=== PATIENT | male | born 1990 | race Caucasian/White ===

== ENCOUNTER 2016-02-13 07:54 | Emergency (ER) | payer OTHER ==
[2016-02-13 08:11] VITALS: BP 160/89
--- NOTE | 2016-02-13 08:21 | UC ---
General HPI - HPI Summary HPI Summary: complaint of sebaceous cyst on left side of neck for over 1 year scheduled to have removed on the 02/19/16 feels slightly larger and warm that started approx 4 days ago taking ibuprofen with some relief denies fever , difficulty swallowing - History of Current Complaint Chief Complaint: UCSkin Stated Complaint: LUMP ON NECK Time Seen by Provider: 02/13/16 08:10 Hx Obtained From: Patient - Allergy/Home Medications Allergies/Adverse Reactions: Allergies Allergy/AdvReac Type Severity Reaction Status Date / Time No Known Allergies Allergy Verified 01/17/16 15:00 PMH/Surg Hx/FS Hx/Imm Hx Previously Healthy: Yes Cardiovascular History Of: Denies: Cardiac Disorders, Hypertension Respiratory History Of: Reports: Asthma - as a child - Surgical History Surgical History: None - Family History Known Family History: Negative: Cardiac Disease, Hypertension, Diabetes Family History: NON CONTRIBUTORY - Social History Occupation: Employed Full-time Alcohol Use: Weekly Alcohol Amount: weekends Substance Use Type: None Smoking Status (MU): Heavy Every Day Tobacco Smoker Amount Used/How Often: 1/2 ppd Length of Time of Smoking/Using Tobacco: since age 20 Have You Smoked in the Last Year: Yes Cessation Counseling: Patient Advised to Stop - Immunization History Most Recent Tetanus Shot: 12/2015 Review of Systems Constitutional: Negative Skin: Other - cyst in left side of neck Eyes: Negative ENT: Negative Respiratory: Negative Cardiovascular: Negative Gastrointestinal: Negative Genitourinary: Negative Motor: Negative Neurovascular: Negative Musculoskeletal: Negative Neurological: Negative Psychological: Negative All Other Systems Reviewed And Are Negative: Yes Physical Exam Triage Information Reviewed: Yes Appearance: No Pain Distress, Well-Nourished Vital Signs: Initial Vital Signs Temp 99.1 F 02/13/16 08:04 Pulse 78 02/13/16 08:04 Resp 18 02/13/16 08:04 BP 160/89 02/13/16 08:04 Pulse Ox 100 02/13/16 08:04 Vital Signs Reviewed: Yes Eyes: Positive: Conjunctiva Clear ENT: Positive: Pharynx normal, TMs normal. Negative: Nasal congestion Neck: Positive: Enlarged Nodes @ - left side of neck 1.5x1.5cm cyst erythematous and warm to touch Respiratory: Positive: Lungs clear, Normal breath sounds, No respiratory distress Cardiovascular: Positive: RRR, No Murmur, Pulses Normal Abdomen Description: Positive: Nontender, Soft Bowel Sounds: Positive: Present Musculoskeletal: Positive: No Edema Neurological: Positive: Alert Psychological Exam: Normal Skin Exam: Normal Course/Dx - Course Course Of Treatment: exam completed. cyst is in neck and needs to be removed by surgeon. no difficulties swallowing and afebrile. pt will call [facility] emergency department to make an earlier appt - Differential Dx - Multi-Symptom Provider Diagnoses: sebaceous cyst- left side of neck. elevated blood pressure Discharge - Discharge Plan Condition: Stable Disposition: HOME Patient Education Materials: Cyst (ED) Referrals: Bi Alonso NP [Primary Care Provider] - Additional Instructions: [facility] to see if your appointment can be made sooner for cyst removal take ibuprofen for pain and to reduce inflammation please followup with your primary care provider about your elevated blood pressure. Please review your discharge instructions. If your symptoms do not improve please call your primary care provider or return to urgent care.
== END 2016-02-13 08:35 | disposition home or self-care (01) ==
LOC: UCEAST 07:54
DX: L72.3 Sebaceous cyst (principal); F17.210 Nicotine dependence, cigarettes, uncomplicated; R03.0 Elevated blood-pressure reading, without diagnosis of hypertension
CPT/HCPCS: 99211; G0463

== ENCOUNTER 2016-08-14 17:34 | Emergency (ER) | payer OTHER ==
[2016-08-14 17:44] VITALS: BP 162/100
--- NOTE | 2016-08-14 19:42 | UC ---
Complaint Male HPI - HPI Summary HPI Summary: 1 WEEK OF DYSURIA, FREQUENCY AND SENSATION OF INCOMPLETE VOIDING. URINE IS DARK. WORKS OUTSIDE A [employer] AND HAS NOT BEEN DRINKING ENOUGH WATER. IS IN A MONOGAMOUS RELATIONSHIP WITH HIS GIRLFRIEND FOR OVER A YEAR AND A HALF. TIP OF PENIS AND URETHRAL MEATUS FEEL IRRITATED. DENIES ANY DRIP. - History of Current Complaint Chief Complaint: UCGU Stated Complaint: UTI COMPLAINT Time Seen by Provider: 08/14/16 19:00 Hx Obtained From: Patient Onset/Duration: Gradual Onset, Lasting Days, Still Present Timing: Constant Severity Initially: Moderate Severity Currently: Moderate Location: Penis Character: Burning Aggravating Factor(s): Voiding Alleviating Factor(s): Nothing Associated Signs And Symptoms: Positive: Dysuria. Negative: Back Pain, Fever, Penile Discharge - Allergies/Home Medications Allergies/Adverse Reactions: Allergies Allergy/AdvReac Type Severity Reaction Status Date / Time No Known Allergies Allergy Verified 08/14/16 17:44 PMH/Surg Hx/FS Hx/Imm Hx Previously Healthy: Yes - Surgical History Surgical History: None - Family History Known Family History: Negative: Cardiac Disease, Hypertension, Diabetes Family History: NON CONTRIBUTORY - Social History Alcohol Use: Weekly Alcohol Amount: weekends Substance Use Type: None Smoking Status (MU): Heavy Every Day Tobacco Smoker Amount Used/How Often: 1/2 ppd Length of Time of Smoking/Using Tobacco: since age 20 Have You Smoked in the Last Year: Yes - Immunization History Most Recent Tetanus Shot: 12/2015 Review of Systems Constitutional: Negative Respiratory: Negative Cardiovascular: Negative Gastrointestinal: Negative Genitourinary: Dysuria, Frequency, Urgency All Other Systems Reviewed And Are Negative: Yes Physical Exam Triage Information Reviewed: Yes Appearance: Well-Appearing, No Pain Distress, Well-Nourished Vital Signs: Initial Vital Signs Temp 98.1 F 08/14/16 17:40 Pulse 98 08/14/16 17:40 Resp 16 08/14/16 17:40 BP 162/100 08/14/16 17:40 Pulse Ox 100 08/14/16 17:40 Vital Signs Reviewed: Yes Eyes: Positive: Conjunctiva Clear ENT: Positive: Hearing grossly normal Neck: Positive: Supple Respiratory: Positive: No respiratory distress, No accessory muscle use Cardiovascular: Positive: Pulses Normal Abdomen Description: Positive: Soft Musculoskeletal: Positive: No Edema Neurological: Positive: Alert Psychological: Positive: Age Appropriate Behavior Skin: Negative: rashes UC Physical Exam Vital Signs On Initial Exam: Initial Vitals Temp Pulse Resp BP Pulse Ox 98.1 F 98 16 162/100 100 08/14/16 17:40 08/14/16 17:40 08/14/16 17:40 08/14/16 17:40 08/14/16 17:40 - Genitalia Exam Male Genitalia: Circumcised, Other - NO PENILE D/C. NO LESIONS. NO SCROTAL TENDERNESS. NO INGUINAL LAD. Complaint Male Course/Dx - Differential Dx/Diagnosis Provider Diagnoses: DYSURIA Discharge - Discharge Plan Condition: Stable Disposition: HOME Patient Education Materials: Dysuria (ED) Referrals: Shala Dominguez, SIGNAL CIRCUIT DESIGNER [Primary Care Provider] - 1 Week Additional Instructions: URINE SENT FOR CULTURE AND TESTING FOR GONORRHEA AND CHLAMYDIA. BE SURE TO STAY VERY WELL HYDRATED. FOLLOW-UP WITH SHALA DOMINGUEZ FOR FURTHER EVALUATION IF YOUR SYMPTOMS ARE PERSISTENT. YOU MAY BENEFIT FROM IMAGING.
[2016-08-14] MEDS ORDERED: cefTRIAXone VIAL(*) 250 MG VIAL IM ONE (19:54)
[2016-08-14] MEDS ORDERED: Lidocaine 1% MPF* 2 ML VIAL INJ ONE (19:54)
[2016-08-14] MEDS ORDERED: Azithromycin TAB* 250 MG PO ONE (19:55)
== END 2016-08-14 20:29 | disposition home or self-care (01) ==
LOC: UCEAST 17:34
DX: R30.0 Dysuria (principal); F17.210 Nicotine dependence, cigarettes, uncomplicated
CPT/HCPCS: 81003; 87086; 87491; 87591; 99211; A9270-GY; G0463; J0696

== ENCOUNTER 2016-08-16 09:26 | Emergency (ER) | payer OTHER ==
--- NOTE | 2016-08-16 10:30 | UC ---
Complaint Male HPI - HPI Summary HPI Summary: PT SEEN HERE 2 DAYS AGO AND TREATED FOR GC/CHLAMYDIA. RETURNS TODAY C/O RIGHT GROIN AND SCROTAL TENDERNESS. DYSURIA IS IMPROVED. DENIES ANAL INSERTIVE INTERCOURSE OR TRAUMA. IS IN A MONOGAMOUS RELATIONSHIP WITH GF FOR OVER A YEAR AND A HALF. PT IS VERY ANXIOUS. - History of Current Complaint Chief Complaint: UCGU Stated Complaint: TESTICULAR PAIN AND DIARRHEA Time Seen by Provider: 08/16/16 09:53 Hx Obtained From: Patient Onset/Duration: Gradual Onset, Lasting Days, Still Present Timing: Constant Severity Initially: Moderate Severity Currently: Moderate Pain Intensity: 4 Pain Scale Used: 0-10 Numeric Location: Scrotum - RIGHT Character: Sharp Aggravating Factor(s): Nothing Alleviating Factor(s): Nothing Associated Signs And Symptoms: Positive: Back Pain. Negative: Diaphoresis, Fever, Hematuria, Dysuria, Constipation, Blood in Stool, Rectal Pain, Appetite, Nausea, Vomiting(# Of Episodes =), Penile Swelling, Penile Discharge - Allergies/Home Medications Allergies/Adverse Reactions: Allergies Allergy/AdvReac Type Severity Reaction Status Date / Time No Known Allergies Allergy Verified 08/14/16 17:44 PMH/Surg Hx/FS Hx/Imm Hx Respiratory History: Asthma - Surgical History Surgical History: None Surgery Procedure, Year, and Place: cyst removed - Family History Known Family History: Negative: Cardiac Disease, Hypertension, Diabetes Family History: NON CONTRIBUTORY - Social History Alcohol Use: Weekly Alcohol Amount: weekends Substance Use Type: None Smoking Status (MU): Heavy Every Day Tobacco Smoker Amount Used/How Often: 1/2 ppd Length of Time of Smoking/Using Tobacco: since age 20 Have You Smoked in the Last Year: Yes - Immunization History Most Recent Tetanus Shot: 12/2015 Review of Systems Constitutional: Negative Skin: Negative Respiratory: Negative Cardiovascular: Negative Gastrointestinal: Negative Genitourinary: Other - RIGHT TESTICULAR PAIN All Other Systems Reviewed And Are Negative: Yes Physical Exam Triage Information Reviewed: Yes Appearance: Well-Appearing, No Pain Distress, Well-Nourished Vital Signs: Initial Vital Signs Temp 97.9 F 08/16/16 09:27 Pulse 78 08/16/16 09:27 Resp 16 08/16/16 09:27 BP 136/85 08/16/16 09:27 Pulse Ox 100 08/16/16 09:27 Vital Signs Reviewed: Yes Eyes: Positive: Conjunctiva Clear ENT: Positive: Hearing grossly normal Neck: Positive: Supple Respiratory: Positive: No respiratory distress, No accessory muscle use Cardiovascular: Positive: Pulses Normal Abdomen Description: Positive: Nontender, Soft. Negative: CVA Tenderness (R), CVA Tenderness (L), Distended, Guarding Musculoskeletal: Positive: No Edema Neurological: Positive: Alert Psychological: Positive: Age Appropriate Behavior Skin: Negative: rashes UC Physical Exam Vital Signs On Initial Exam: Initial Vitals Temp Pulse Resp BP Pulse Ox 97.9 F 78 16 136/85 100 08/16/16 09:27 08/16/16 09:27 08/16/16 09:27 08/16/16 09:08/16/16 09:27 - Genitalia Exam Male Genitalia Cont.: Right: Testicles Tender - POSTERIORLY, Bilateral: Testicles Descended - NO RASH, NO MASS, NO PENILE D/C, NO HERNIA Diagnostics - Laboratory Diagnostic Studies Completed/Ordered: URINE DIP UNREMARKABLE - Radiology TESTICULAR US Xray Interpretation: No Acute Changes Radiology Interpretation Completed By: Radiologist Complaint Male Course/Dx - Differential Dx/Diagnosis Differential Diagnosis/HQI/PQRI: Epididymitis, Testicular Torsion Provider Diagnoses: RIGHT TESTICULAR PAIN Discharge - Discharge Plan Condition: Stable Disposition: HOME Patient Education Materials: Epididymitis (ED), Testicle Pain (ED) Referrals: Bi Alonso NP [Primary Care Provider] - If Needed Ronnie Cruz MD [Medical Doctor] - 5 Days Additional Instructions: ULTRASOUND TODAY UNREMARKABLE. URINE TEST UNREMARKABLE. SINCE YOUR SYMPTOMS SEEM TO BE IMPROVED ALREADY FROM THIS MORNING WOULD RECOMMEND CAREFUL OBSERVATION. USE SCROTAL SUPPORT AND TAKE OTC ANTI-INFLAMMATORIES FOR DISCOMFORT. CALL UROLOGY TODAY FOR AN APPT NEXT WEEK. GO TO THE ER WITHOUT FAIL IF YOUR PAIN WORSENS.
[2016-08-16 11:19] VITALS: BP 147/88
--- NOTE | 2016-08-16 11:27 | RAD ---
HISTORY: Right testicular pain COMPARISONS: None TECHNIQUE: Multiple transverse and longitudinal ultrasound images were obtained of the scrotum, using grayscale, color Doppler, and spectral Doppler imaging. FINDINGS: RIGHT: RIGHT TESTICLE: The right testicle measures 4.3 x 2.2 x 3.3 cm. The right testicle is homogeneous in echotexture, without testicular parenchymal mass. Normal arterial and venous waveforms are identified within the right testicle on spectral Doppler imaging. RIGHT EPIDIDYMIS: The right epididymis measures 0.9 cm at the head. RIGHT SCROTUM: There is no hydrocele or varicocele. LEFT: LEFT TESTICLE: The left testicle measures 4 x 1.9 x 2.9 cm. The left testicle is homogeneous in echotexture, without testicular parenchymal mass. Normal arterial and venous waveforms are identified within the left testicle on spectral Doppler imaging. LEFT EPIDIDYMIS: The left epididymis measures 0.8 cm at the head. LEFT SCROTUM: There is no hydrocele or varicocele. OTHER: None IMPRESSION: NO TESTICULAR PARENCHYMAL MASS. NO SONOGRAPHIC FEATURES OF TORSION. PLEASE NOTE THAT PARTIAL OR INTERMITTENT TORSION MAY BE SONOGRAPHICALLY NORMAL.
== END 2016-08-16 12:23 | disposition home or self-care (01) ==
LOC: UCEAST 09:26
DX: N50.811 Right testicular pain (principal); F17.210 Nicotine dependence, cigarettes, uncomplicated
CPT/HCPCS: 76870; 81003; 99211; G0463

== ENCOUNTER 2016-11-22 09:36 | Emergency (ER) | payer OTHER ==
[2016-11-22 09:55] VITALS: BP 147/89
--- NOTE | 2016-11-22 10:59 | UC ---
Skin Complaint HPI - HPI Summary HPI Summary: Patient presents with an unremarkable past medical history. He states last summer he developed jock itch and treated it with lotrisone spray with goo relief. She states ow he has some itching around his anus. He denies any dusuria, hematuria or abdominal pain. - History of Current Complaint Chief Complaint: UCGeneralIllness Time Seen by Provider: 11/22/16 10:02 Stated Complaint: RASH Hx Obtained From: Patient Onset/Duration: Gradual Onset, Lasting Days Skin Exposure Onset/Duration: Weeks Ago Current Severity: None Location: Other - groin, and testicles Aggravating Factor(s): Humidity, Other - heat and sweating Alleviating Factor(s): OTC Meds Associated Signs & Symptoms: Positive: Rash Similar Episode/Dx as: jock itch - Allergy/Home Medications Allergies/Adverse Reactions: Allergies Allergy/AdvReac Type Severity Reaction Status Date / Time No Known Allergies Allergy Verified 11/22/16 09:49 Review of Systems Constitutional: Negative Skin: Rash Eyes: Negative ENT: Negative Respiratory: Negative Cardiovascular: Negative Gastrointestinal: Negative Genitourinary: Negative Motor: Negative Neurovascular: Negative Musculoskeletal: Negative Neurological: Negative Psychological: Negative All Other Systems Reviewed And Are Negative: Yes PMH/Surg Hx/FS Hx/Imm Hx Previously Healthy: Yes - Surgical History Surgical History: Yes Surgery Procedure, Year, and Place: cyst removed - Family History Known Family History: Negative: Cardiac Disease, Hypertension, Diabetes Family History: NON CONTRIBUTORY - Social History Occupation: Employed Full-time Lives: Alone Alcohol Use: Weekly Alcohol Amount: weekends Substance Use Type: None Smoking Status (MU): Heavy Every Day Tobacco Smoker Amount Used/How Often: 1/2 ppd Length of Time of Smoking/Using Tobacco: since age 20 Have You Smoked in the Last Year: Yes - Immunization History Most Recent Tetanus Shot: 12/2015 Physical Exam Triage Information Reviewed: Yes Vital Signs: Initial Vital Signs Temp 99.1 F 11/22/16 09:50 Pulse 88 11/22/16 09:50 Resp 18 11/22/16 09:50 BP 147/89 11/22/16 09:50 Pulse Ox 100 11/22/16 09:50 Vital Signs Reviewed: Yes Eye Exam: Normal ENT Exam: Normal Dental Exam: Normal Neck exam: Normal Neck: Positive: 1 Respiratory Exam: Normal Cardiovascular Exam: Normal Abdominal Exam: Normal Musculoskeletal Exam: Normal Neurological Exam: Normal Psychological Exam: Normal Skin Exam: Normal Course/Dx - Course Course Of Treatment: Patient presents with healed jock itch, except surrounding the anus. He was RX diflucan 150 mg once time dose and discharge home. - Differential Diagnoses - Skin Complaint Differential Diagnoses: Other - jock itch - Diagnoses Provider Diagnoses: jock itch Discharge - Discharge Plan Condition: Stable Disposition: HOME Prescriptions: Fluconazole 150 MG (NF) [Diflucan 150 mg (NF)] 150 mg PO ONCE #1 tab Patient Education Materials: Skin Yeast Infection (ED) Referrals: Bi Alonso NP [Primary Care Provider] -
== END 2016-11-22 10:45 | disposition home or self-care (01) ==
LOC: UCEAST 09:36
DX: B35.6 Tinea cruris (principal); F17.210 Nicotine dependence, cigarettes, uncomplicated
CPT/HCPCS: 99212; G0463

== ENCOUNTER 2016-11-23 17:56 | Emergency (ER) | payer OTHER ==
[2016-11-23 18:11] VITALS: BP 156/83
[2016-11-23] MEDS ORDERED: Amoxicillin/Clavulanate TAB* 875 MG PO ONE (19:03)
--- NOTE | 2016-11-23 20:39 | UC ---
Throat Pain/Nasal Primitivo HPI - HPI Summary HPI Summary: ONE DAY OF SORE THROAT, LEFT EAR DISCOMFORT. EXPOSED TO GIRLFRIEND WITH TONSILLITIS. NO FEVER. - History of Current Complaint Chief Complaint: UCRespiratory Stated Complaint: SORE THROAT Time Seen by Provider: 11/23/16 18:34 Hx Obtained From: Patient Onset/Duration: Gradual Onset, Lasting Days Severity: Mild Pain Intensity: 2 Pain Scale Used: 0-10 Numeric Cough: None Associated Signs & Symptoms: Positive: Hoarseness, Other - LEFT EAR PAIN - Epiglottits Risk Factors Epiglottis Risk Factors: Negative - Allergies/Home Medications Allergies/Adverse Reactions: Allergies Allergy/AdvReac Type Severity Reaction Status Date / Time No Known Allergies Allergy Verified 11/23/16 18:12 PMH/Surg Hx/FS Hx/Imm Hx Previously Healthy: Yes - Surgical History Surgical History: Yes Surgery Procedure, Year, and Place: cyst removed - Family History Known Family History: Negative: Cardiac Disease, Hypertension, Diabetes Family History: NON CONTRIBUTORY - Social History Occupation: Student Lives: With Family Alcohol Use: Occasionally Alcohol Amount: weekends Substance Use Type: None Smoking Status (MU): Heavy Every Day Tobacco Smoker Amount Used/How Often: 1/2 ppd Length of Time of Smoking/Using Tobacco: since age 20 Have You Smoked in the Last Year: Yes Cessation Counseling: Patient Advised to Stop - Immunization History Most Recent Tetanus Shot: 12/2015 Review of Systems Constitutional: Negative Skin: Negative Eyes: Negative ENT: Sore Throat, Ear Ache Respiratory: Negative Cardiovascular: Negative Gastrointestinal: Negative Genitourinary: Negative Motor: Negative Neurovascular: Negative Musculoskeletal: Negative Neurological: Negative Psychological: Negative Is Patient Immunocompromised?: No All Other Systems Reviewed And Are Negative: Yes Physical Exam Triage Information Reviewed: Yes Appearance: Well-Appearing, No Pain Distress, Well-Nourished Vital Signs: Initial Vital Signs Temp 98.4 F 11/23/16 18:09 Pulse 90 11/23/16 18:09 Resp 12 11/23/16 18:09 BP 156/83 11/23/16 18:09 Pulse Ox 99 11/23/16 18:09 Vital Signs Reviewed: Yes Eye Exam: Normal ENT: Positive: Pharyngeal erythema, TMs normal, TM bulging, Other: - LEFT EAC EDEMA ERYTHEMA Dental: Positive: Cervical Lymphadenopathy - LEFT ANTERIOR CERVICAL CHAIN Neck: Positive: Supple, Nontender, Enlarged Nodes @ - LEFT ANTERIRO CERVICAL CHAIN Respiratory Exam: Normal Respiratory: Positive: Chest non-tender, Lungs clear, Normal breath sounds, No respiratory distress Cardiovascular Exam: Normal Cardiovascular: Positive: RRR, No Murmur, Pulses Normal Abdominal Exam: Normal Musculoskeletal Exam: Normal Musculoskeletal: Positive: Strength Intact Neurological Exam: Normal Psychological Exam: Normal Skin Exam: Normal Throat Pain/Nasal Course/Dx - Differential Dx/Diagnosis Differential Diagnosis/HQI/PQRI: Otitis Media, Pharyngitis, Tonsillitis, URI Provider Diagnoses: PHARYNGITIS; LEFT OTITIS EXTERNA Discharge - Discharge Plan Condition: Stable Disposition: HOME Prescriptions: Amoxicillin/Clavulanate TAB* [Augmentin TAB 875*] 875 mg PO BID #20 tab Neomyc/Polym/HC 1% OTIC SUSP* [Cortisporin Otic Susp 1%*] 4 drop LEFT EAR QID # 1 btl Patient Education Materials: Pharyngitis (ED), Otitis Externa (ED) Referrals: Bi Alonso LAUNDERER HAND [Primary Care Provider] -
== END 2016-11-23 19:21 | disposition home or self-care (01) ==
LOC: UCEAST 17:56
DX: J02.9 Acute pharyngitis, unspecified (principal); H60.92 Unspecified otitis externa, left ear; F17.210 Nicotine dependence, cigarettes, uncomplicated
CPT/HCPCS: 87651; 99212; A9270-GY; G0463

== ENCOUNTER 2017-04-05 10:43 | Emergency (ER) | payer OTHER ==
[2017-04-05 11:07] VITALS: BP 143/93
--- NOTE | 2017-04-05 12:47 | UC ---
Emilia Blood Emily, scribed for Bill Inman MD on 04/05/17 at 1158 . Skin Complaint HPI - HPI Summary HPI Summary: This patient is a 26 year old M presenting to urgent care with a chief complaint of itching to buttock fold that began 2 weeks ago. The patient rates the pain 6/10 in severity. Symptoms aggravated by nothing. Symptoms alleviated by nothing. Patient reports burning sensation in buttock fold. Patient denies fever and constipation. Pt reports having similar symptoms in the summer of 2016. - History of Current Complaint Chief Complaint: UCRash Time Seen by Provider: 04/05/17 11:45 Stated Complaint: RASH Hx Obtained From: Patient Onset/Duration: Sudden Onset, Lasting Weeks, Still Present Onset Severity: Moderate Current Severity: Moderate Pain Intensity: 6 Pain Scale Used: 0-10 Numeric Location: Other - Buttock fold Aggravating Factor(s): Nothing Alleviating Factor(s): Nothing - Allergy/Home Medications Allergies/Adverse Reactions: Allergies Allergy/AdvReac Type Severity Reaction Status Date / Time No Known Allergies Allergy Verified 04/05/17 11:07 Home Medications: Home Medications Tolnaftate 1% CREAM* [Tinactin 1% CREAM*] 1 applic TOPICAL BID 04/05/17 [ History Confirmed 04/05/17] Review of Systems Constitutional: Other - Negative fever Skin: Other - Positive itching and burning sensation in buttock fold Gastrointestinal: Other - Negative constipation All Other Systems Reviewed And Are Negative: Yes PMH/Surg Hx/FS Hx/Imm Hx Previously Healthy: No Cardiovascular History: Other Other Cardiovascular History: Negative hypertension Respiratory History: Asthma - Surgical History Surgical History: Yes Surgery Procedure, Year, and Place: cyst removed - Family History Known Family History: Negative: Cardiac Disease, Hypertension, Diabetes Family History: NON CONTRIBUTORY - Social History Occupation: Employed Full-time Lives: Alone Alcohol Use: Weekly Alcohol Amount: weekends Substance Use Type: None Smoking Status (MU): Heavy Every Day Tobacco Smoker Type: Cigarettes Amount Used/How Often: 1/2 ppd Length of Time of Smoking/Using Tobacco: since age 20 Have You Smoked in the Last Year: Yes - Immunization History Most Recent Tetanus Shot: 12/2015 Physical Exam - Summary Physical Exam Summary: General: well-appearing, no pain distress Skin: warm, color reflects adequate perfusion, dry Head: normal Eyes: EOMI, [place] ENT: normal Neck: supple, nontender Respiratory: CTA, breath sounds present Cardiovascular: RRR Abdomen: soft, nontender Bowel: present Musculoskeletal: normal, strength/ROM intact Anal Exam: Anus appears normal. Perianal area is erythematous, moist, and has no vesicles. Neurological: normal, sensory/motor intact, A&O x3 Psychological: affect/mood appropriate Triage Information Reviewed: Yes Vital Signs: Initial Vital Signs Temp 98.5 F 04/05/17 11:03 Pulse 108 04/05/17 11:03 Resp 18 04/05/17 11:03 BP 143/93 04/05/17 11:03 Pulse Ox 100 04/05/17 11:03 Vital Signs Reviewed: Yes Course/Dx - Course Course Of Treatment: WILL TREAT WITH KETOCONAZOLE TOPICAL AND FLUCONAZOLE PO WITH ONE REPEAT DOSE IF NEEDED. NO VESICLES OR INFLAMED HEMORROID SEEN. PATIENT NOT ILL, DOES NOT APPEAR TO BE CELLULITIS. DISCUSSED WITH PATIENT TO GET RECHECKED IF NOT IMPROVED OR IF WORSENS. - Diagnoses Provider Diagnoses: PERIANAL RASH, MOST PROBABLY FUNGAL INFECTION. Discharge - Discharge Plan Condition: Stable Disposition: HOME Prescriptions: Fluconazole [Fluconazole 150 mg tab] 150 mg PO ONCE #2 tablet Ketoconazole 2 % CREAM (NF) [Nizoral 2% CREAM (NF)] 1 applic TOPICAL DAILY #1 tube Patient Education Materials: Fernando Gallardo (ED) Referrals: Bi Alonso NP [Primary Care Provider] - Additional Instructions: FOLLOW UP WITH YOUR DOCTOR. GET RECHECKED FOR ANY WORSENING OF YOUR CONDITION OR QUESTIONS OR CONCERNS. YOUR BLOOD PRESSURE WAS ELEVATED DURING TODAY'S VISIT; FOLLOW UP WITH YOUR PCP WITHIN ONE WEEK FOR FURTHER EVALUATION. The documentation as recorded by the Emilia adames Emily accurately reflects the service I personally performed and the decisions made by me, Bill Inman MD.
== END 2017-04-05 12:21 | disposition home or self-care (01) ==
LOC: UCEAST 10:43
DX: R21 Rash and other nonspecific skin eruption (principal); J45.909 Unspecified asthma, uncomplicated
CPT/HCPCS: 99212; G0463

== ENCOUNTER 2017-06-19 11:08 | Emergency (ER) | payer OTHER ==
[2017-06-19 11:23] VITALS: BP 140/80
--- NOTE | 2017-06-19 11:45 | ED ---
GI/ HPI - HPI Summary HPI Summary: 26M presents with rectal itching for the past 2 months. He states that it is intermittent. He denies any penile discharge or testicular pain. He states he' s been having intermittent left inguinal pain. He states it feels like a fullness. He states he used to have a little mass in the area that disappeared that he believes was a lymph node. He denies any nausea vomiting. Denies any fevers. He states he is also been having tailbone pain after orgasms. He denies any injury or anal sex. He denies any swelling to his tailbone. He denies any loss of bowel or bladder. He denies any saddle anesthesia. He denies any history of pilondial cyst. He does have a history of jock itch but this cleared up with medication. - History of Current Complaint Chief Complaint: UCGeneralIllness Time Seen by Provider: 06/19/17 11:24 Stated Complaint: PERSONAL Pain Intensity: 4 - Allergy/Home Medications Allergies/Adverse Reactions: Allergies Allergy/AdvReac Type Severity Reaction Status Date / Time No Known Allergies Allergy Verified 06/19/17 11:17 PMH/Surg Hx/FS Hx/Imm Hx Endocrine/Hematology History: Denies: Hx Anticoagulant Therapy Cardiovascular History: Denies: Hx Hypertension Respiratory History: Reports: Hx Asthma - as a child - Surgical History Surgery Procedure, Year, and Place: cyst removed from neck Infectious Disease History: No Infectious Disease History: Denies: Hx Clostridium Difficile, Hx Hepatitis, Hx Human Immunodeficiency Virus (HIV), Hx of Known/Suspected MRSA, Hx Shingles, Hx Tuberculosis, Hx Known/ Suspected VRE, Hx Known/Suspected VRSA, History Other Infectious Disease, Traveled Outside the in Last 30 Days - Family History Known Family History: Negative: Cardiac Disease, Hypertension, Diabetes Family History: NON CONTRIBUTORY - Social History Alcohol Use: Weekly Alcohol Amount: weekends Substance Use Type: Reports: None Smoking Status (MU): Heavy Every Day Tobacco Smoker Type: Cigarettes Amount Used/How Often: 1/2 ppd Length of Time of Smoking/Using Tobacco: since age 20 Have You Smoked in the Last Year: Yes Review of Systems Negative: Fever Negative: Chest Pain Negative: Shortness Of Breath Positive: Other - rectal itching Positive: other - left inguinal pain All Other Systems Reviewed And Are Negative: Yes Physical Exam Triage Information Reviewed: Yes Vital Signs On Initial Exam: Initial Vitals Temp Pulse Resp BP Pulse Ox 98.3 F 82 18 140/80 100 06/19/17 11:16 06/19/17 11:16 06/19/17 11:16 06/19/17 11:16 06/19/17 11:16 Vital Signs Reviewed: Yes Appearance: Positive: Well-Appearing Skin: Positive: Warm, Dry Head/Face: Positive: Normal Head/Face Inspection Eyes: Positive: Normal, Conjunctiva Clear ENT: Positive: Pharynx normal Respiratory/Lung Sounds: Positive: Clear to Auscultation, Breath Sounds Present Cardiovascular: Positive: Normal, RRR Abdomen Description: Positive: Nontender, Soft Bowel Sounds: Positive: Present Male Genital Exam: Positive: Normal Genitalia, No Hernia, Other - hemorrhoid present on rectal exam. no rectal tone, nontender tail bone and no erythema or edema noted. Negative: Inguinal Tenderness Musculoskeletal: Positive: Normal Neurological: Positive: Normal Psychiatric: Positive: Normal Diagnostics - Vital Signs Vital Signs Temp Pulse Resp BP Pulse Ox 06/19/17 11:16 98.3 F 82 18 140/80 100 - Laboratory Lab Statement: Any lab studies that have been ordered have been reviewed, and results considered in the medical decision making process. GIGU Course/Dx - Course Course Of Treatment: 26M presents with rectal itching for the past 2 months. He states that it is intermittent. He denies any penile discharge or testicular pain. He states he's been having intermittent left inguinal pain. He states it feels like a fullness. He states he used to have a little mass in the area that disappeared that he believes was a lymph node. He denies any nausea vomiting. Denies any fevers. He states he is also been having tailbone pain after orgasms. He denies any injury or anal sex. He denies any swelling to his tailbone. He denies any loss of bowel or bladder. He denies any saddle anesthesia. He denies any history of pilondial cyst. He does have a history of jock itch but this cleared up. on exam nontender inguinal area. no mass felt. suspect inguinal pain is from hernia. good rectal tone. hemorrhoid present. nontender tailbone with no edema or erythema. will treat hemorrhoids with ansul and colace. told to follow up with primary. gave urology referral as patient has been have intermittment testicular pain for past couple months but not now. patient understand and agrees with plan. - Diagnoses Differential Diagnoses - Male: Hemorrhoids, Incarcerated Hernia, Other - pilodonial cyst Provider Diagnoses: Hemorrhoids Discharge - Sign-Out/Discharge Documenting (check all that apply): Discharge/Admit/Transfer - Discharge Plan Condition: Good Disposition: HOME Prescriptions: Docusate CAP* [Colace Cap*] 100 mg PO DAILY #20 cap Hydrocortisone SUPP* [Anusol HC Supp*] 25 mg .SEE ORDER BID #30 supp Patient Education Materials: Hemorrhoids (ED) Referrals: Bi Alonso NP [Primary Care Provider] - Ronnie Cruz MD [Medical Doctor] - Additional Instructions: Inc fiber, take doculase one a day for constipation Can do sitz baths for area Use anusol twice a day Follow up with primary if no improvement A referral was given for urology Return to ED if any new or worsening symptoms - Billing Disposition and Condition Condition: GOOD Disposition: HOME
== END 2017-06-19 11:53 | disposition home or self-care (01) ==
LOC: UCEAST 11:08
DX: K64.8 Other hemorrhoids (principal); J45.909 Unspecified asthma, uncomplicated; F17.210 Nicotine dependence, cigarettes, uncomplicated
CPT/HCPCS: 99212; G0463

== ENCOUNTER 2017-11-05 09:42 | Emergency (ER) | payer OTHER ==
[2017-11-05 09:56] VITALS: BP 141/92
--- NOTE | 2017-11-05 10:00 | UC ---
Skin Complaint HPI - HPI Summary HPI Summary: 27 yo male presents with red, swollen, and painful area to skin of left hip. He tells me that 3 days ago he noticed a small red bump here that was mildly tender. Since that time the area has enlarged and has become more painful. He has tried to "pop" it, but has only had scant drainage. Denies fever, chills. - History of Current Complaint Chief Complaint: UCLowerExtremity Time Seen by Provider: 11/05/17 09:59 Stated Complaint: L HIP COMPLAINT Hx Obtained From: Patient Onset/Duration: Gradual Onset Onset Severity: Mild Current Severity: Moderate Pain Intensity: 6 Pain Scale Used: 0-10 Numeric - Allergy/Home Medications Allergies/Adverse Reactions: Allergies Allergy/AdvReac Type Severity Reaction Status Date / Time No Known Allergies Allergy Verified 11/05/17 09:56 Home Medications: Home Medications Ibuprofen 400 mg PO 11/05/17 [History] Review of Systems Constitutional: Negative Skin: Other - Abscess left hip Respiratory: Negative Cardiovascular: Negative Neurovascular: Negative Neurological: Negative Psychological: Negative All Other Systems Reviewed And Are Negative: Yes PMH/Surg Hx/FS Hx/Imm Hx - Additional Past Medical History Additional PMH: None Other History Of: Negative For: Anticoagulant Therapy - Surgical History Surgical History: Yes Surgery Procedure, Year, and Place: cyst removed from neck - Family History Known Family History: Negative: Cardiac Disease, Hypertension, Diabetes - Social History Occupation: Employed Full-time Lives: With Family Alcohol Use: Weekly Alcohol Amount: weekends Substance Use Type: None Smoking Status (MU): Heavy Every Day Tobacco Smoker Type: Cigarettes Amount Used/How Often: 1/2 ppd Length of Time of Smoking/Using Tobacco: since age 20 Have You Smoked in the Last Year: Yes - Immunization History Most Recent Tetanus Shot: 12/2015 Physical Exam - Summary Physical Exam Summary: GENERAL: NAD. WDWN. No pain distress. SKIN: LEFT HIP: Anterior aspect overlying ASIS with 1.0cm abscess. Mild induration. Surrounding erythema and tenderness extending 2.0cm around. No bleeding, drainage, or bite appreciated. NECK: Supple. Nontender. No lymphadenopathy. CHEST: No accessory muscle use. Breathing comfortably and in no distress. CV: Pulses intact. Cap refill <2seconds NEURO: Alert. PSYCH: Age appropriate behavior. Triage Information Reviewed: Yes Vital Signs: Initial Vital Signs Temp 97.9 F 11/05/17 09:54 Pulse 94 11/05/17 09:54 Resp 18 11/05/17 09:54 BP 141/92 11/05/17 09:54 Pulse Ox 100 11/05/17 09:54 Vital Signs Reviewed: Yes Course/Dx - Course Course Of Treatment: A time out was performed, witnessed, and signed. The area was cleansed with an alcohol pad. 2mL of 2% lidocaine without epi was administered and good anesthetization was achieved. The abscess was lanced with a #11 blade. Moderate purulent matter was able to be expressed. A culture was obtained. The wound was bandaged with telfa . Pt tolerated procedure well. Will place him on Bactrim and await culture results. - Diagnoses Provider Diagnoses: Skin abscess left hip Discharge - Sign-Out/Discharge Documenting (check all that apply): Patient Departure All imaging exams completed and their final reports reviewed: No Studies - Discharge Plan Condition: Stable Disposition: HOME Prescriptions: Sulfamethox/Trimethoprim DS* [Bactrim DS 800/160 TAB*] 1 tab PO BID #14 tab Patient Education Materials: Abscess (ED) Referrals: Bi Alonso NP [Primary Care Provider] - Additional Instructions: If you develop a fever, shortness of breath, chest pain, new or worsening symptoms - please call your PCP or go to the ED. Your blood pressure was high at todays visit. Please see your primary provider within 4 weeks for recheck and re-evaluation. 1) Change the dressing daily until well healed 2) If the redness spreads or if your develop a fever - please return to urgent care immediately - Billing Disposition and Condition Condition: STABLE Disposition: Home
[2017-11-05] MEDS ORDERED: Lidocaine 2% PF * 5 ML VIAL INJ ONE (10:05)
--- NOTE | 2017-11-06 12:50 | UC ---
- Progress Note Progress Note: Pt on Bactrim 3+ gram + cocci await sensitivity no change grant 11/06/2017 Discharge - Sign-Out/Discharge Documenting (check all that apply): Post-Discharge Follow Up All imaging exams completed and their final reports reviewed: No Studies - Discharge Plan Condition: Stable Disposition: HOME Prescriptions: Sulfamethox/Trimethoprim DS* [Bactrim DS 800/160 TAB*] 1 tab PO BID #14 tab Patient Education Materials: Abscess (ED) Referrals: Bi Alonso NP [Primary Care Provider] - Additional Instructions: If you develop a fever, shortness of breath, chest pain, new or worsening symptoms - please call your PCP or go to the ED. Your blood pressure was high at todays visit. Please see your primary provider within 4 weeks for recheck and re-evaluation. 1) Change the dressing daily until well healed 2) If the redness spreads or if your develop a fever - please return to urgent care immediately - Billing Disposition and Condition Condition: STABLE Disposition: Home
== END 2017-11-05 10:55 | disposition home or self-care (01) ==
LOC: UCEAST 09:42
DX: L02.416 Cutaneous abscess of left lower limb (principal); B96.89 Other specified bacterial agents as the cause of diseases classified elsewhere; F17.210 Nicotine dependence, cigarettes, uncomplicated
CPT/HCPCS: 10060; 87070; 87205; 87640; 87641; 99212; G0463